=== PATIENT | female | born 1950 ===

== ENCOUNTER 2022-12-23 17:05 | Inpatient (IN) | payer MEDICARE, OTHER ==
[2022-12-23 17:36] LABS: #Basophils 0.1 thou/uL (0.0-0.2); #Eosinphils 0.2 thou/uL (0.0-0.7); #Neutrophils 10.2 thou/uL (1.40-6.50); %Basophils 0.4 % (0.0-1.0); %Eosinophils 1.4 % (0.0-10.0); %Lymphocytes 11.6 % (21.0-51.0); %Monocytes 7.7 % (0.0-10.0); %Neutrophils 77.9 % (42.0-75.0); Hemoglobin 10.9 g/dL (12.0-16.0); Mean Corpuscular HGB CONC 32.7 g/dL (32.0-36.0); Mean Corpuscular Hemoglobin 30.6 pg (27.0-31.0); Mean Corpuscular Volume 93.5 fl (78.0-98.0); Mean Platelet Volume 10.3 fL (7.4-10.4); Platelet Count 268 10x3/uL (130-400); RBC Distribution Width 12.4 % (11.5-14.5); Red Blood Cell (RBC) Count 3.56 mill/uL (4.20-5.40); White Blood Cell (WBC) Count 13.1 10x3/uL (4.8-10.8)
[2022-12-23 17:51] LABS: Bacteria/HPF None Seen HPF (None Seen); Bilirubin Negative (Negative); Blood, Urine Negative (Negative); CAUTI Indications for Culture Pelvic or flank pain; Clarity Clear (Clear); Glucose, Urine (Dipstick) Normal (Negative); Ketone, Urine Negative (Negative); Leukocyte Negative Leu/uL (Negative); Nitrite Negative (Negative); Protein, Urine (Dipstick) Negative (Neg-Trace); RBC/HPF 0-3 HPF (0-3); Specific Gravity, Urine 1.018 (1.002-1.036); Squamous Epithelial 0-3 HPF (0-3); WBC/HPF 0-3 HPF (0-3)
[2022-12-23 17:52] LABS: Urine Culture Reflex No No
[2022-12-23 18:02] LABS: ALT (SGPT) 27 U/L (8-55); AST (SGOT) 29 U/L (5-34); Albumin 3.4 g/dL (3.4-4.8); Alkaline Phosphatase 270 U/L (40-110); Anion Gap 17 mmol/L (10-20); BUN (Urea Nitrogen) 30 mg/dL (9.8-20.1); Bilirubin, Total 0.8 mg/dL (0.2-1.2); Calc. Creatinine Clearance 0 mL/min (70-130); Calcium 9.8 mg/dL (7.8-10.44); Carbon Dioxide 25 mmol/L (23-31); Chloride 97 mmol/L (98-107); Estimated GFR 45; Globulin 4.2 g/dL (2.4-3.5); Glucose 152 mg/dL (83-110); Lipase 143 U/L (8-78); Potassium 4.1 mmol/L (3.5-5.1); Protein, Total 7.6 g/dL (5.8-8.1); Sodium 135 mmol/L (136-145)
[2022-12-23] MEDS ORDERED: Morphine 4 MG/ML VIAL ONE (18:24)
[2022-12-23] MEDS ORDERED: Ketorolac Tromethamine 30 MG/ML VIAL ONE (18:24)
[2022-12-23] MEDS ORDERED: Ondansetron PF 4 MG/2 ML Vial ONE (18:24)
[2022-12-23] MEDS ORDERED: Piperacillin/Tazobactam 3.375 GM VIAL ONE (22:25)
[2022-12-23] MEDS ORDERED: Ipratropium/Albuterol 3 ML NEB NEB PRN (22:37)
[2022-12-23] MEDS ORDERED: hydrALAZINE 20 MG/ML VIAL SLOW IVP PRN (22:37)
[2022-12-23] MEDS ORDERED: Mag-Al 1200 mg/1200 mg/30 ML UDCUP PO PRN (22:37)
[2022-12-23] MEDS ORDERED: Calcium Carbonate 500 MG ChewTAB PO PRN (22:37)
[2022-12-23] MEDS ORDERED: Dextrose 50% Abboject 50 ML SYRINGE SLOW IVP PRN (22:37)
[2022-12-23] MEDS ORDERED: Ondansetron PF 4 MG/2 ML Vial IVP PRN (22:37)
[2022-12-23] MEDS ORDERED: HumaLOG 300 UNITS/3 ML VIAL SC PRN (22:37)
[2022-12-23] MEDS ORDERED: Promethazine HCl 25 MG/ML VIAL IM PRN (22:37)
[2022-12-23] MEDS ORDERED: Dextrose 5% in Water 1,000 ML IV PRN (22:37)
[2022-12-23] MEDS ORDERED: Glucagon 1 MG/ML KIT IM PRN (22:37)
[2022-12-23] MEDS ORDERED: Piperacillin/Tazobactam 3.375 GM in Sodium Chloride 0.9% 100 ML IVPB SCH (22:45)
[2022-12-23] MEDS ORDERED: Sodium Chloride 0.9% 1,000 ML IV SCH (22:45)
[2022-12-23 23:07] VITALS: BMI 42.2
[2022-12-23] MEDS ORDERED: D5 1/2 NS w/20 mEq KCL 1,000 ML ONE (23:16)
[2022-12-23] MEDS: D5 1/2 NS w/20 mEq KCL 1,000 ML IV SCH (23:27)
[2022-12-24] MEDS: Piperacillin/Tazobactam 3.375 GM in Sodium Chloride 0.9% 100 ML IVPB SCH ×3 (05:11→18:31)
[2022-12-24] MEDS ORDERED: Piperacillin/Tazobactam 3.375 GM VIAL ONE ×2 (05:23→11:57)
[2022-12-24] MEDS ORDERED: Famotidine 20 MG TAB PO SCH (09:00)
[2022-12-24] MEDS ORDERED: Famotidine/PF 20 mg/2ml Vial SLOW IVP SCH (09:00)
[2022-12-24] MEDS ORDERED: D5 1/2 NS w/20 mEq KCL 1,000 ML ONE (09:45)
[2022-12-24] MEDS ORDERED: Famotidine/PF 20 mg/2ml Vial ONE (09:45)
[2022-12-24] MEDS: D5 1/2 NS w/20 mEq KCL 1,000 ML IV SCH ×2 (09:54→18:14)
[2022-12-24] MEDS ORDERED: Fentanyl 250 MCG/5 ML VIAL ONE (11:37)
[2022-12-24] MEDS ORDERED: SUGAMMADEX SODIUM 200 MG/2 ML VIAL ONE (11:38)
[2022-12-24] MEDS ORDERED: Sodium Chloride 0.9% 100 ML ONE (11:57)
[2022-12-24] MEDS ORDERED: ePHEDrine Sulfate 50 MG/10 ML VIAL ONE (12:30)
[2022-12-24] MEDS ORDERED: Dexamethasone 20 MG/5 ML VIAL ONE (12:30)
[2022-12-24] MEDS ORDERED: PROPOFOL 200 MG/20 ML VIAL ONE (12:30)
[2022-12-24] MEDS ORDERED: Lidocaine 1% PF 5 ML VIAL ONE (12:30)
[2022-12-24] MEDS ORDERED: Rocuronium Bromide 10 MG/ML (10ML VIAL) ONE (12:30)
[2022-12-24] MEDS ORDERED: Bupivacaine/Epinephrine 0.25% 30 ML VIAL ONE ×2 (12:38→13:16)
[2022-12-24] MEDS ORDERED: Ondansetron HCl/PF 4 MG/2 ML Vial IVP PRN (15:55)
[2022-12-24] MEDS ORDERED: HYDROmorphone 2 MG/ML VIAL SLOW IVP PRN (15:55)
[2022-12-24] MEDS ORDERED: Promethazine HCl 25 MG/ML VIAL IM PRN (15:55)
[2022-12-24] MEDS ORDERED: PACU-Morphine 4MG/ML VIAL SLOW IVP PRN (15:55)
[2022-12-24] MEDS ORDERED: fentaNYL 50 mcg/mL 1 mL Vial ONE ×2 (16:11→17:09)
[2022-12-24 16:16] LABS: Hemoglobin 9.9 g/dL (12.0-16.0)
[2022-12-24] MEDS ORDERED: HYDROmorphone 0.5 MG/0.5 ML SYRINGE ONE (16:27)
[2022-12-24] MEDS: Morphine 2 MG/ML VIAL SLOW IVP PRN (18:31)
[2022-12-24] MEDS: HYDROcodone/Acetaminophen 10/325 mg Tablet PO PRN (20:51)
[2022-12-24] MEDS: FLUoxetine HCl 20 MG CAP PO SCH (20:52)
[2022-12-25] MEDS: Morphine 2 MG/ML VIAL SLOW IVP PRN (00:57)
[2022-12-25] MEDS: HYDROcodone/Acetaminophen 10/325 mg Tablet PO PRN ×2 (02:08→08:40)
[2022-12-25] MEDS: D5 1/2 NS w/20 mEq KCL 1,000 ML IV SCH (02:09)
[2022-12-25] MEDS: Piperacillin/Tazobactam 3.375 GM in Sodium Chloride 0.9% 100 ML IVPB SCH ×3 (02:09→19:00)
[2022-12-25 04:06] LABS: #Neutrophils 12.5 thou/uL (1.40-6.50); %Basophils 0.2 % (0.0-1.0); %Lymphocytes 6.1 % (21.0-51.0); %Monocytes 6.9 % (0.0-10.0); %Neutrophils 85.9 % (42.0-75.0); Hemoglobin 8.9 g/dL (12.0-16.0); Mean Corpuscular HGB CONC 31.7 g/dL (32.0-36.0); Mean Corpuscular Hemoglobin 30.8 pg (27.0-31.0); Mean Corpuscular Volume 97.2 fl (78.0-98.0); Mean Platelet Volume 10.6 fL (7.4-10.4); Platelet Count 249 10x3/uL (130-400); RBC Distribution Width 12.6 % (11.5-14.5); Red Blood Cell (RBC) Count 2.89 mill/uL (4.20-5.40); White Blood Cell (WBC) Count 14.6 10x3/uL (4.8-10.8)
[2022-12-25 04:42] LABS: ALT (SGPT) 39 U/L (8-55); AST (SGOT) 58 U/L (5-34); Alkaline Phosphatase 176 U/L (40-110); Anion Gap 13 mmol/L (10-20); BUN (Urea Nitrogen) 15 mg/dL (9.8-20.1); Bilirubin, Total 0.5 mg/dL (0.2-1.2); Calc. Creatinine Clearance 86 mL/min (70-130); Calcium 8.6 mg/dL (7.8-10.44); Carbon Dioxide 21 mmol/L (23-31); Chloride 106 mmol/L (98-107); Estimated GFR 68; Globulin 3.2 g/dL (2.4-3.5); Glucose 224 mg/dL (83-110); Lipase 19 U/L (8-78); Potassium 5.4 mmol/L (3.5-5.1); Protein, Total 6.2 g/dL (5.8-8.1); Sodium 135 mmol/L (136-145)
[2022-12-25] MEDS: Famotidine 20 MG TAB PO SCH ×2 (08:37→20:43)
[2022-12-25] MEDS: Sodium Chloride 0.9% 1,000 ML IV SCH ×3 (08:40→21:03)
[2022-12-25] MEDS: Famotidine/PF 20 mg/2ml Vial SLOW IVP SCH ×2 (08:41→20:45)
[2022-12-25] MEDS ORDERED: fentaNYL 50 mcg/mL 1 mL Vial ONE (13:10)
[2022-12-25] MEDS ORDERED: SUGAMMADEX SODIUM 200 MG/2 ML VIAL ONE (13:11)
[2022-12-25] MEDS ORDERED: Glucagon 1 MG/ML KIT ONE (13:11)
[2022-12-25] MEDS ORDERED: Ondansetron HCl/PF 4 MG/2 ML Vial IVP PRN (13:36)
[2022-12-25] MEDS ORDERED: HYDROmorphone 2 MG/ML VIAL SLOW IVP PRN (13:36)
[2022-12-25] MEDS ORDERED: Promethazine HCl 25 MG/ML VIAL IM PRN (13:36)
[2022-12-25] MEDS ORDERED: Morphine Sulfate 2 MG/ML SYRINGE SLOW IVP PRN (13:36)
[2022-12-25] MEDS ORDERED: Metoclopramide HCl 10 MG/2 ML VIAL ONE (13:38)
[2022-12-25] MEDS ORDERED: Succinylcholine 200 MG/10 ml SYRINGE FS ONE (13:38)
[2022-12-25] MEDS ORDERED: Ondansetron PF 4 MG/2 ML Vial ONE (13:38)
[2022-12-25] MEDS ORDERED: Dexamethasone 20 MG/5 ML VIAL ONE (13:38)
[2022-12-25] MEDS ORDERED: Lidocaine 1% PF 5 ML VIAL ONE (13:38)
[2022-12-25] MEDS ORDERED: PROPOFOL 200 MG/20 ML VIAL ONE (13:38)
[2022-12-25] MEDS ORDERED: Rocuronium Bromide 10 MG/ML (10ML VIAL) ONE (13:38)
[2022-12-25] MEDS ORDERED: Indomethacin 50 MG SUPP ONE (13:40)
[2022-12-25] MEDS ORDERED: Iopamidol 15 ML ONE (13:41)
[2022-12-25] MEDS ORDERED: Iopamidol 30 ML ONE (14:46)
[2022-12-25] MEDS ORDERED: Ampicillin/Sulbactam 3 GM in Sodium Chloride 0.9% 100 ML IVPB SCH (16:45)
[2022-12-25 17:20] LABS: #Neutrophils 14.4 thou/uL (1.40-6.50); %Basophils 0.2 % (0.0-1.0); %Eosinophils 0.2 % (0.0-10.0); %Lymphocytes 6.2 % (21.0-51.0); %Neutrophils 85.5 % (42.0-75.0); Hemoglobin 8.9 g/dL (12.0-16.0); Mean Corpuscular HGB CONC 30.6 g/dL (32.0-36.0); Mean Corpuscular Hemoglobin 30.4 pg (27.0-31.0); Mean Corpuscular Volume 99.3 fl (78.0-98.0); Platelet Count 249 10x3/uL (130-400); RBC Distribution Width 12.6 % (11.5-14.5); Red Blood Cell (RBC) Count 2.93 mill/uL (4.20-5.40); White Blood Cell (WBC) Count 16.8 10x3/uL (4.8-10.8)
[2022-12-25] MEDS ORDERED: traMADol HCl 50 MG TAB PO PRN (17:42)
[2022-12-25] MEDS ORDERED: Cyclobenzaprine 10 MG TAB PO PRN (17:42)
[2022-12-25] MEDS: traMADol HCl 50 MG TAB PO SCH ×2 (18:32→23:43)
[2022-12-25] MEDS: Acetaminophen 500 MG TAB PO SCH ×2 (18:32→23:42)
[2022-12-25] MEDS: traZODone HCl 50 MG TAB PO SCH (20:42)
[2022-12-25] MEDS: Senokot S 8.6-50 MG TAB PO SCH (20:43)
[2022-12-25] MEDS: FLUoxetine HCl 20 MG CAP PO SCH (20:43)
[2022-12-25] MEDS ORDERED: Dexamethasone 4 mg/ml Vial SLOW IVP SCH (22:00)
[2022-12-26] MEDS: Piperacillin/Tazobactam 3.375 GM in Sodium Chloride 0.9% 100 ML IVPB SCH ×3 (03:10→17:57)
[2022-12-26 04:00] LABS: #Monocytes 0.7 thou/uL (0.11-0.59); #Neutrophils 10.8 thou/uL (1.40-6.50); %Basophils 0.2 % (0.0-1.0); %Lymphocytes 7.5 % (21.0-51.0); %Monocytes 5.5 % (0.0-10.0); %Neutrophils 85.8 % (42.0-75.0); Hemoglobin 8.1 g/dL (12.0-16.0); Mean Corpuscular HGB CONC 30.9 g/dL (32.0-36.0); Mean Corpuscular Hemoglobin 30.2 pg (27.0-31.0); Mean Corpuscular Volume 97.8 fl (78.0-98.0); Mean Platelet Volume 10.2 fL (7.4-10.4); Platelet Count 216 10x3/uL (130-400); RBC Distribution Width 12.6 % (11.5-14.5); Red Blood Cell (RBC) Count 2.68 mill/uL (4.20-5.40); White Blood Cell (WBC) Count 12.6 10x3/uL (4.8-10.8)
[2022-12-26 04:23] LABS: ALT (SGPT) 32 U/L (8-55); AST (SGOT) 33 U/L (5-34); Albumin 2.9 g/dL (3.4-4.8); Alkaline Phosphatase 148 U/L (40-110); Anion Gap 13 mmol/L (10-20); BUN (Urea Nitrogen) 16 mg/dL (9.8-20.1); Bilirubin, Direct 0.4 mg/dL (0.1-0.3); Bilirubin, Total 0.5 mg/dL (0.2-1.2); Calc. Creatinine Clearance 90 mL/min (70-130); Calcium 8.3 mg/dL (7.8-10.44); Carbon Dioxide 19 mmol/L (23-31); Chloride 110 mmol/L (98-107); Estimated GFR 67; Glucose 192 mg/dL (83-110); Magnesium 1.7 mg/dL (1.6-2.6); Phosphorus 2.4 mg/dL (2.3-4.7); Potassium 5.2 mmol/L (3.5-5.1); Protein, Total 6.1 g/dL (5.8-8.1); Sodium 137 mmol/L (136-145)
[2022-12-26] MEDS: Sodium Chloride 0.9% 1,000 ML IV SCH ×2 (04:43→12:24)
[2022-12-26] MEDS: Acetaminophen 500 MG TAB PO SCH ×3 (05:53→17:57)
[2022-12-26] MEDS: traMADol HCl 50 MG TAB PO SCH ×3 (05:54→18:04)
[2022-12-26] MEDS: Lisinopril 20 MG TAB PO SCH (08:17)
[2022-12-26] MEDS: Atorvastatin Calcium 40 MG TAB PO SCH (08:17)
[2022-12-26] MEDS: Famotidine/PF 20 mg/2ml Vial SLOW IVP SCH (08:17)
[2022-12-26] MEDS: Famotidine 20 MG TAB PO SCH ×2 (08:17→20:11)
[2022-12-26] MEDS: Senokot S 8.6-50 MG TAB PO SCH ×2 (08:17→20:12)
[2022-12-26 11:24] LABS: INR-International Normal Ratio 1.2; PTT 33.2 sec (22.9-36.1); Prothrombin Time 15.8 sec (12.0-14.7)
[2022-12-26] MEDS ORDERED: Bismuth SubsALICYLATE 30 ML(17.5 mg/mL) Susp PO SCH (17:00)
[2022-12-26] MEDS: Bismuth SubsALICYLATE 30 ML(17.5 mg/mL) Susp PO SCH (17:58)
[2022-12-26] MEDS: guaiFENesin/DM ER PO PRN (20:10)
[2022-12-26] MEDS: traZODone HCl 50 MG TAB PO SCH (20:10)
[2022-12-26] MEDS: FLUoxetine HCl 20 MG CAP PO SCH (20:10)
[2022-12-26] MEDS ORDERED: Furosemide 20 MG/2 ML VIAL SLOW IVP SCH (21:00)
[2022-12-27] MEDS: Bismuth SubsALICYLATE 30 ML(17.5 mg/mL) Susp PO SCH ×5 (00:01→23:40)
[2022-12-27] MEDS: traMADol HCl 50 MG TAB PO SCH ×5 (00:01→23:40)
[2022-12-27] MEDS: Acetaminophen 500 MG TAB PO SCH ×5 (00:01→23:40)
[2022-12-27] MEDS: Piperacillin/Tazobactam 3.375 GM in Sodium Chloride 0.9% 100 ML IVPB SCH ×3 (02:39→18:35)
[2022-12-27 06:29] LABS: #Eosinphils 0.2 thou/uL (0.0-0.7); #Neutrophils 11.4 thou/uL (1.40-6.50); %Basophils 0.3 % (0.0-1.0); %Eosinophils 1.1 % (0.0-10.0); %Lymphocytes 16.6 % (21.0-51.0); %Monocytes 6.5 % (0.0-10.0); %Neutrophils 74.4 % (42.0-75.0); Hemoglobin 7.8 g/dL (12.0-16.0); Mean Corpuscular Volume 96.9 fl (78.0-98.0); Platelet Count 276 10x3/uL (130-400); White Blood Cell (WBC) Count 15.3 10x3/uL (4.8-10.8)
[2022-12-27 06:52] LABS: ALT (SGPT) 32 U/L (8-55); AST (SGOT) 33 U/L (5-34); Albumin 2.9 g/dL (3.4-4.8); Alkaline Phosphatase 137 U/L (40-110); Anion Gap 15 mmol/L (10-20); BUN (Urea Nitrogen) 14 mg/dL (9.8-20.1); Bilirubin, Direct 0.3 mg/dL (0.1-0.3); Bilirubin, Total 0.5 mg/dL (0.2-1.2); Calc. Creatinine Clearance 76 mL/min (70-130); Calcium 8.5 mg/dL (7.8-10.44); Carbon Dioxide 18 mmol/L (23-31); Chloride 114 mmol/L (98-107); Estimated GFR 52; Glucose 86 mg/dL (83-110); Lipase 22 U/L (8-78); Magnesium 1.3 mg/dL (1.6-2.6); Phosphorus 2.1 mg/dL (2.3-4.7); Potassium 4.2 mmol/L (3.5-5.1); Protein, Total 5.9 g/dL (5.8-8.1); Sodium 143 mmol/L (136-145)
[2022-12-27] MEDS ORDERED: PHOS-NAK 1 PKT PACK PO SCH (08:15)
[2022-12-27] MEDS ORDERED: Magnesium Sulfate In Water 4 GM in Premix Bag 1 BAG IVPB SCH (09:00)
[2022-12-27] MEDS: Atorvastatin Calcium 40 MG TAB PO SCH (09:53)
[2022-12-27] MEDS: Senokot S 8.6-50 MG TAB PO SCH ×2 (09:53→20:39)
[2022-12-27] MEDS: Lisinopril 20 MG TAB PO SCH (09:53)
[2022-12-27] MEDS: Famotidine 20 MG TAB PO SCH ×2 (09:54→20:32)
[2022-12-27] MEDS ORDERED: ALPRAZolam 0.5 MG TAB PO PRN (19:03)
[2022-12-27] MEDS: FLUoxetine HCl 20 MG CAP PO SCH (20:32)
[2022-12-27] MEDS ORDERED: Melatonin 3 MG TAB PO SCH (21:00)
[2022-12-27] MEDS: traZODone HCl 50 MG TAB PO SCH (22:00)
[2022-12-28] MEDS: Piperacillin/Tazobactam 3.375 GM in Sodium Chloride 0.9% 100 ML IVPB SCH ×2 (03:43→13:13)
[2022-12-28] MEDS: guaiFENesin/DM ER PO PRN (04:33)
[2022-12-28] MEDS: Acetaminophen 500 MG TAB PO SCH ×2 (05:24→13:12)
[2022-12-28] MEDS: traMADol HCl 50 MG TAB PO SCH ×2 (05:24→13:11)
[2022-12-28] MEDS: Bismuth SubsALICYLATE 30 ML(17.5 mg/mL) Susp PO SCH ×2 (05:24→13:13)
[2022-12-28 06:35] LABS: #Basophils 0.1 thou/uL (0.0-0.2); #Eosinphils 0.3 thou/uL (0.0-0.7); #Monocytes 0.9 thou/uL (0.11-0.59); #Neutrophils 8.8 thou/uL (1.40-6.50); %Basophils 0.6 % (0.0-1.0); %Eosinophils 2.1 % (0.0-10.0); %Neutrophils 71.7 % (42.0-75.0); Hemoglobin 7.7 g/dL (12.0-16.0); Mean Corpuscular HGB CONC 31.3 g/dL (32.0-36.0); Mean Corpuscular Hemoglobin 30.2 pg (27.0-31.0); Mean Corpuscular Volume 96.5 fl (78.0-98.0); Platelet Count 307 10x3/uL (130-400); Red Blood Cell (RBC) Count 2.55 mill/uL (4.20-5.40); White Blood Cell (WBC) Count 12.2 10x3/uL (4.8-10.8)
[2022-12-28 07:59] LABS: Anion Gap 12 mmol/L (10-20); BUN (Urea Nitrogen) 10 mg/dL (9.8-20.1); Calc. Creatinine Clearance 90 mL/min (70-130); Calcium 8.5 mg/dL (7.8-10.44); Carbon Dioxide 24 mmol/L (23-31); Chloride 109 mmol/L (98-107); Estimated GFR 66; Glucose 94 mg/dL (83-110); Magnesium 1.9 mg/dL (1.6-2.6); Phosphorus 3.2 mg/dL (2.3-4.7); Potassium 4.2 mmol/L (3.5-5.1); Sodium 141 mmol/L (136-145)
[2022-12-28] MEDS: Famotidine 20 MG TAB PO SCH (10:00)
[2022-12-28] MEDS: Lisinopril 20 MG TAB PO SCH (10:01)
[2022-12-28] MEDS: Atorvastatin Calcium 40 MG TAB PO SCH (10:01)
[2022-12-28] MEDS: Senokot S 8.6-50 MG TAB PO SCH (10:01)
[2022-12-28 11:43] VITALS: BP 131/78; TEMP 97.6
== END 2022-12-28 14:41 | disposition home or self-care (01) | DRG 414 ==
LOC: ERS 17:05 → ERHOLD 21:44 → IMCU/EMU 12-24 17:40 → OBSVTOIN 12-24 19:31 → SJJU 12-26 22:18
PROVIDERS: ADMIT Surgery; ATTEND Surgery
PROC: 0FT40ZZ Resection of Gallbladder, Open Approach (ICD-10-PCS; principal; 2022-12-24)
PROC: 0DNU0ZZ Release Omentum, Open Approach (ICD-10-PCS; 2022-12-24)
PROC: 0FJ44ZZ Inspection of Gallbladder, Percutaneous Endoscopic Approach (ICD-10-PCS; 2022-12-24)
PROC: 0DNU4ZZ Release Omentum, Percutaneous Endoscopic Approach (ICD-10-PCS; 2022-12-24)
PROC: 0FC98ZZ Extirpation of Matter from Common Bile Duct, Via Natural or Artificial Opening Endoscopic (ICD-10-PCS; 2022-12-25)
PROC: BF101ZZ Fluoroscopy of Bile Ducts using Low Osmolar Contrast (ICD-10-PCS; 2022-12-25)
DX: K80.62 Calculus of gallbladder and bile duct with acute cholecystitis without obstruction (principal); K85.10 Biliary acute pancreatitis without necrosis or infection; Z68.42 Body mass index [BMI] 45.0-49.9, adult; E66.01 Morbid (severe) obesity due to excess calories; E11.9 Type 2 diabetes mellitus without complications; E78.5 Hyperlipidemia, unspecified; I10 Essential (primary) hypertension; Z96.653 Presence of artificial knee joint, bilateral; E86.0 Dehydration; K66.0 Peritoneal adhesions (postprocedural) (postinfection); E87.6 Hypokalemia; E88.81 Metabolic syndrome and other insulin resistance; Z98.890 Other specified postprocedural states; Z88.8 Allergy status to other drugs, medicaments and biological substances
CPT/HCPCS: 36415; 36416; 74330; 76705; 80048; 80053; 80076; 81001; 83690; 83735; 84100; 85014; 85018; 85025; 85610; 85730; 86850; 86900; 86901; 87070; 87077; 87186; 87205; 88304; 96365; 96375; C1713; C1725; C1889; J0360; J1100; J1170; J1611; J1650; J1885; J1940; J2270; J2272; J2405; J2543; J2704; J2765; J3010; J3475; J3480; J3490; J7050; Q9967; S0028